=== PATIENT | male | born 1965 | race Caucasian/White ===

== ENCOUNTER 2019-04-21 21:57 | Emergency (ER) | payer BC, OTHER ==
[~2019-04-21] VITALS: Ht 193 cm; Wt 99.5 kg
[~2019-04-21 21:57] MED LIST: HYDR-3972 PO
[2019-04-21 22:29] LABS: BASOPHILS % (AUTO) 0.4 % (0-1); EOSINOPHILS % (AUTO) 0.4 % (0-6); HEMATOCRIT 46.2 % (42.0-52.0); HEMOGLOBIN 15.4 g/dl (14.0-17.9); LYMPHOCYTES # (AUTO) 1.1 X10'3 (1.1-4.8); LYMPHOCYTES % (AUTO) 15.4 % (21-51); MEAN CORPUSCULAR HEMOGLOBIN 30.6 PG (27.0-31.0); MEAN CORPUSCULAR HGB CONC 33.3 g/dL (33.0-36.5); MEAN CORPUSCULAR VOLUME 91.9 FL (78-98); MEAN PLATELET VOLUME 8.1 FL (7.4-10.4); MONOCYTES # (AUTO) 0.4 X10'3 (0-0.9); MONOCYTES % (AUTO) 6.1 % (2-12); NEUTROPHILS # (AUTO) 5.6 X10'3 (1.8-7.7); NEUTROPHILS % (AUTO) 77.7 % (42-75); PLATELET COUNT 244 X10'3 (140-440); RED BLOOD COUNT 5.03 X10'6 (4.70-6.10); RED CELL DISTRIBUTION WIDTH 15.6 % (11.5-14.5); WHITE BLOOD COUNT 7.2 X10'3 (4.5-11.0)
[2019-04-21 22:36] LABS: ALANINE AMINOTRANSFERASE 69 U/L (12-78); ALBUMIN 3.3 G/DL (3.4-5.0); ALKALINE PHOSPHATASE 119 IU/L (46-116); ANION GAP 5 (8-16); ASPARTATE AMINO TRANSFERASE 39 U/L (10-37); BILIRUBIN,TOTAL 0.8 MG/DL (0.1-1.0); BLOOD UREA NITROGEN 28 MG/DL (7-18); BUN/CREATININE RATIO 16.6 (5.4-32.0); CHLORIDE 105 MMOL/L (99-107); CREATININE 1.69 MG/DL (0.60-1.10); GLUCOSE 116 MG/DL (70-104); SODIUM 137 MMOL/L (135-145); TOTAL CARBON DIOXIDE 26.7 MMOL/L (24-32); TOTAL PROTEIN 6.6 G/DL (6.4-8.2); eGFR 42 ML/MIN
[2019-04-21 22:38] LABS: PARTIAL THROMBOPLASTIN TIME 27 SECONDS (22-32)
[2019-04-21 23:38] VITALS: BP 150/89
== END 2019-04-21 23:39 | disposition home or self-care (01) ==
LOC: ER 21:58
DX: I50.9 Heart failure, unspecified (principal); F12.90 Cannabis use, unspecified, uncomplicated; Z98.890 Other specified postprocedural states; Z79.899 Other long term (current) drug therapy
CPT/HCPCS: 36415; 71045; 80053; 83880; 84484; 85025; 85610; 85730; 93005; 99284

== ENCOUNTER 2019-05-19 17:38 | Inpatient (IN) | payer SELFPAY ==
[~2019-05-19] VITALS: Ht 193 cm; Wt 94.7 kg
[2019-05-19 18:12] LABS: BASOPHILS % (AUTO) 0.5 % (0-1); EOSINOPHILS % (AUTO) 0.6 % (0-6); HEMATOCRIT 47.5 % (42.0-52.0); HEMOGLOBIN 15.7 g/dl (14.0-17.9); LYMPHOCYTES % (AUTO) 14.7 % (21-51); MEAN CORPUSCULAR HEMOGLOBIN 30.4 PG (27.0-31.0); MEAN PLATELET VOLUME 7.6 FL (7.4-10.4); MONOCYTES # (AUTO) 0.5 X10'3 (0-0.9); MONOCYTES % (AUTO) 7.1 % (2-12); NEUTROPHILS # (AUTO) 5.5 X10'3 (1.8-7.7); NEUTROPHILS % (AUTO) 77.1 % (42-75); PLATELET COUNT 236 X10'3 (140-440); RED BLOOD COUNT 5.16 X10'6 (4.70-6.10); RED CELL DISTRIBUTION WIDTH 15.5 % (11.5-14.5); WHITE BLOOD COUNT 7.1 X10'3 (4.5-11.0)
[2019-05-19 18:18] LABS: PARTIAL THROMBOPLASTIN TIME 27 SECONDS (22-32)
[2019-05-19 18:20] LABS: ALANINE AMINOTRANSFERASE 63 U/L (12-78); ALBUMIN 3.4 G/DL (3.4-5.0); ALKALINE PHOSPHATASE 124 IU/L (46-116); ANION GAP 7 (8-16); ASPARTATE AMINO TRANSFERASE 34 U/L (10-37); BILIRUBIN,TOTAL 1.1 MG/DL (0.1-1.0); BLOOD UREA NITROGEN 24 MG/DL (7-18); BUN/CREATININE RATIO 18.9 (5.4-32.0); CALCIUM 9.7 MG/DL (8.5-10.1); CHLORIDE 105 MMOL/L (99-107); CREATININE 1.27 MG/DL (0.60-1.10); GLUCOSE 112 MG/DL (70-104); POTASSIUM 4.2 MMOL/L (3.5-5.1); SODIUM 140 MMOL/L (135-145); TOTAL CARBON DIOXIDE 28.1 MMOL/L (24-32); TOTAL PROTEIN 6.7 G/DL (6.4-8.2); eGFR 59 ML/MIN
[2019-05-19] MEDS ORDERED: normal saline 1000ML IV soln IVB ONE (18:30)
[2019-05-19] MEDS ORDERED: morphine 4 MG/ML inj SYRINge IV PRN (18:30)
[2019-05-19] MEDS ORDERED: ondansetron/PF 4mg/2ml inj IV ONE (18:30)
[2019-05-19] MEDS ORDERED: iohexol 350MG/ML 100ml bottle IV ONE (18:39)
[2019-05-19] MEDS ORDERED: furosemide 10 MG/1 ML 10ml inj IV ONE (19:25)
[2019-05-19] MEDS ORDERED: FURO-149 PO (20:34)
[2019-05-19] MEDS ORDERED: LEVO175T2 PO (20:34)
[2019-05-19] MEDS ORDERED: TEST200V10 IM (20:34)
[2019-05-19] MEDS ORDERED: magnesium 2GM in 50ml NS 50 ML IV PRN (20:35)
[2019-05-19] MEDS ORDERED: magnesium hydroxide 30ml (MOM) UD suspension PO PRN (20:35)
[2019-05-19] MEDS ORDERED: ondansetron/PF 4mg/2ml inj IV PRN (20:35)
[2019-05-19] MEDS ORDERED: potassium CL 10mEq/100ml bag 100 ML IV PRN ×2 (20:35)
[2019-05-19] MEDS ORDERED: magnesium 4gm in 100ml NS 100 ML IV PRN (20:35)
[2019-05-19] MEDS ORDERED: acetaminophen 325mg tablet PO PRN ×2 (20:35)
[2019-05-19] MEDS ORDERED: magnesium Cl slow-release 64mg tablet PO PRN (20:35)
[2019-05-19] MEDS ORDERED: potassium Cl 20 mEq SR tablet PO PRN (20:35)
[2019-05-19] MEDS ORDERED: mag hydrox/Alum hydrox/simeth 30ml oral suspension PO PRN (20:35)
--- NOTE | 2019-05-19 21:40 | NUR ---
Pt brought to room 359A via [place],. amb to bed. alert and oriented, gait steady. spouse at bedside. Oriented to room and routine. Received report from GREG. Addendum: 05/19/19 at 2144 by Milagro Salgado RN Amended: Links added.
[2019-05-19 21:46] VITALS: BP 126/87
--- NOTE | 2019-05-19 23:11 | NUR ---
Received call from patient's daughter, Nisha. Patient states okay for family to get information. Requested that primary nurse, Etta, to return call to answer questions. Etta provided Nisha's cell phone number.
[2019-05-19] MEDS: Melatonin 3mg tablet PO SCH (23:13)
[2019-05-19] MEDS ORDERED: pneumococcal 23-VAL P-sac vacc 25 mcg/0.5ml vial IMVAC ONE (23:15)
--- NOTE | 2019-05-19 23:25 | NUR ---
Pt daughter called wanted to chek on pt. Pt states it is okay to give information to daughter Nisha. Addendum: 05/20/19 at 0016 by Milagro Salgado RN Amended: Links added.
[2019-05-20] VITALS (12 sets, daily range): BP systolic 102–119; BP diastolic 69–89
[2019-05-20] MEDS ORDERED: metoprolol tartrate 1mg/ml inj IV PRN (00:15)
[2019-05-20] MEDS ORDERED: aminophylline 250mg/10ml inj. IV PRN (00:15)
[2019-05-20] MEDS ORDERED: nitroGLYCERIN 0.4mg SUBLingual tab SL PRN ×2 (00:15)
[2019-05-20] MEDS ORDERED: regadenoson 0.4mg/5ml syringe IV ONE (00:15)
--- NOTE | 2019-05-20 06:30 | NUR ---
Patient in room [facility]. I have received report from GREG Quiles and had the opportunity to ask questions and assume patient care.
--- NOTE | 2019-05-20 06:30 | NUR ---
Problems reprioritized. Patient report given, questions answered & plan of care reviewed with GREG Wright. Addendum: 05/20/19 at 0647 by Milagro Salgado RN Amended: Links added.
[2019-05-20 06:42] LABS: BASOPHILS % (AUTO) 0.6 % (0-1); EOSINOPHILS # (AUTO) 0.1 X10'3 (0-0.9); EOSINOPHILS % (AUTO) 0.8 % (0-6); HEMATOCRIT 44.1 % (42.0-52.0); HEMOGLOBIN 14.7 g/dl (14.0-17.9); LYMPHOCYTES % (AUTO) 15.5 % (21-51); MEAN CORPUSCULAR HEMOGLOBIN 30.8 PG (27.0-31.0); MEAN CORPUSCULAR HGB CONC 33.3 g/dL (33.0-36.5); MEAN CORPUSCULAR VOLUME 92.5 FL (78-98); MEAN PLATELET VOLUME 8.2 FL (7.4-10.4); MONOCYTES # (AUTO) 0.4 X10'3 (0-0.9); MONOCYTES % (AUTO) 6.3 % (2-12); NEUTROPHILS % (AUTO) 76.8 % (42-75); PLATELET COUNT 200 X10'3 (140-440); RED BLOOD COUNT 4.77 X10'6 (4.70-6.10); RED CELL DISTRIBUTION WIDTH 15.4 % (11.5-14.5); WHITE BLOOD COUNT 6.5 X10'3 (4.5-11.0)
[2019-05-20 06:57] LABS: ANION GAP 8 (8-16); BLOOD UREA NITROGEN 25 MG/DL (7-18); CALCIUM 8.4 MG/DL (8.5-10.1); CHLORIDE 107 MMOL/L (99-107); CREATININE 1.19 MG/DL (0.60-1.10); GLUCOSE 100 MG/DL (70-104); POTASSIUM 4.2 MMOL/L (3.5-5.1); SODIUM 140 MMOL/L (135-145); TOTAL CARBON DIOXIDE 25.3 MMOL/L (24-32); eGFR 64 ML/MIN
[2019-05-20] MEDS: enoxaparin 40mg/0.4ml syringe SQ SCH (08:00)
[2019-05-20] MEDS: K and/or MAG REPLACEMENT MC SCH (08:00)
[2019-05-20] MEDS: levoTHYROXINE 175mcg tablet PO SCH (08:45)
[2019-05-20] MEDS: aspirin 81mg tablet.DR PO SCH (08:45)
[2019-05-20] MEDS ORDERED: pneumococcal 23-VAL P-sac vacc 25 mcg/0.5ml vial IMVAC ONE (09:00)
[2019-05-20 11:34] LABS: CHOL/HDL RATIO 3.7 (0.00-4.99); CHOLESTEROL 150 MG/DL (0-200); HDL CHOLESTEROL 41 MG/DL (35-60); LDL CHOLESTEROL 97 MG/DL (50-100); TRIGLYCERIDES 69 MG/DL (20-135)
[2019-05-20] MEDS: furosemide 40mg/4ml inj IV SCH ×2 (11:47→20:32)
[2019-05-20] MEDS ORDERED: magnesium 4gm in 100ml NS 100 ML IV PRN (15:20)
[2019-05-20] MEDS ORDERED: potassium Cl 20 mEq SR tablet PO PRN ×2 (15:20)
[2019-05-20] MEDS ORDERED: potassium CL 10mEq/100ml bag 100 ML IV PRN (15:20)
[2019-05-20] MEDS ORDERED: magnesium Cl slow-release 64mg tablet PO PRN (15:20)
[2019-05-20] MEDS ORDERED: magnesium 2GM in 50ml NS 50 ML IV PRN (15:20)
--- NOTE | 2019-05-20 18:40 | NUR ---
Patient in room [facility]. I have received report from GREG Wright and had the opportunity to ask questions and assume patient care. Addendum: 05/20/19 at 1902 by Milagro Salgado RN Amended: Links added.
--- NOTE | 2019-05-20 18:40 | NUR ---
Problems reprioritized. Patient report given, questions answered & plan of care reviewed with GREG Quiles.
[2019-05-20] MEDS: carVEDilol 3.125mg tablet PO SCH (20:32)
[2019-05-20] MEDS: Melatonin 3mg tablet PO SCH (23:32)
[2019-05-21 00:38] VITALS: BP 120/83
[2019-05-21 04:15] LABS: BASOPHILS % (AUTO) 0.4 % (0-1); EOSINOPHILS # (AUTO) 0.1 X10'3 (0-0.9); EOSINOPHILS % (AUTO) 0.7 % (0-6); HEMATOCRIT 45.3 % (42.0-52.0); HEMOGLOBIN 15.2 g/dl (14.0-17.9); LYMPHOCYTES % (AUTO) 13.4 % (21-51); MEAN CORPUSCULAR HEMOGLOBIN 30.9 PG (27.0-31.0); MEAN CORPUSCULAR HGB CONC 33.6 g/dL (33.0-36.5); MEAN CORPUSCULAR VOLUME 92.1 FL (78-98); MEAN PLATELET VOLUME 7.9 FL (7.4-10.4); MONOCYTES # (AUTO) 0.5 X10'3 (0-0.9); MONOCYTES % (AUTO) 6.8 % (2-12); NEUTROPHILS # (AUTO) 5.9 X10'3 (1.8-7.7); NEUTROPHILS % (AUTO) 78.7 % (42-75); PLATELET COUNT 224 X10'3 (140-440); RED BLOOD COUNT 4.92 X10'6 (4.70-6.10); RED CELL DISTRIBUTION WIDTH 15.2 % (11.5-14.5); WHITE BLOOD COUNT 7.5 X10'3 (4.5-11.0)
[2019-05-21 04:33] LABS: ALBUMIN 2.9 G/DL (3.4-5.0); ANION GAP 8 (8-16); BLOOD UREA NITROGEN 25 MG/DL (7-18); BUN/CREATININE RATIO 18.2 (5.4-32.0); CALCIUM 8.6 MG/DL (8.5-10.1); CHLORIDE 104 MMOL/L (99-107); CREATININE 1.37 MG/DL (0.60-1.10); GLUCOSE 102 MG/DL (70-104); MAGNESIUM 1.8 MG/DL (1.5-2.4); PHOSPHORUS 4.3 MG/DL (2.3-4.5); SODIUM 140 MMOL/L (135-145); TOTAL CARBON DIOXIDE 27.8 MMOL/L (24-32); eGFR 54 ML/MIN
--- NOTE | 2019-05-21 06:35 | NUR ---
Problems reprioritized. Patient report given, questions answered & plan of care reviewed with GREG ROMANO. Addendum: 05/21/19 at 0635 by Milagro Salgado RN Amended: Links added.
[2019-05-21 07:00] VITALS: BP 140/63
[2019-05-21 07:22] LABS: URINE AMPHETAMINE SCREEN NEGATIVE (Neg); URINE BARBITUATE SCREEN NEGATIVE (Neg); URINE BENZODIAZEPINES SCREEN NEGATIVE (Neg); URINE CANNABINOID SCREEN POSITIVE (Neg); URINE COCAINE SCREEN NEGATIVE (Neg); URINE METHADONE SCREEN NEGATIVE (Neg); URINE OPIATE SCREEN NEGATIVE (Neg); URINE PHENCYCLIDINE SCREEN NEGATIVE (Neg)
[2019-05-21] MEDS: aspirin 81mg tablet.DR PO SCH (08:00)
[2019-05-21] MEDS: K and/or MAG REPLACEMENT MC SCH (08:00)
[2019-05-21] MEDS: enoxaparin 40mg/0.4ml syringe SQ SCH (08:00)
[2019-05-21] MEDS: levoTHYROXINE 175mcg tablet PO SCH (08:04)
[2019-05-21] MEDS: furosemide 40mg/4ml inj IV SCH ×2 (08:04→20:51)
[2019-05-21] MEDS: carVEDilol 3.125mg tablet PO SCH ×2 (08:04→20:48)
[2019-05-21] MEDS: spironolactone 25 MG tablet PO SCH (08:04)
[2019-05-21 11:54] VITALS: BP 132/60
--- NOTE | 2019-05-21 11:58 | NUR ---
CALLED TO FINE PATCHER AND SPOKE TO GREG BADILLO. LET HIM KNOW THAT THERE WAS A MISC. ORDER PER DR LEBRON TO HAVE PATIENT'S K ABOVE 4.0 AND MG 2.0. PATIENT'S K IS 4.0 AND MG IS 1.8. JUSTINO PLACED THIS RN ON HOLD AND CAME BACK TO PHONE STATING THAT ," YEAH, THAT'S OKAY. JUST HAVE PATIENT PREPPED AND CONSENT SIGNED."
[2019-05-21 12:00] VITALS: BP 132/60
[2019-05-21] MEDS: losartan 25mg tablet PO SCH (12:00)
--- NOTE | 2019-05-21 12:18 | NUR ---
SPOKE TO DR LEBRON AND HE WOULD LIKE FOR PATIENT TO HAVE MG REPLACEMENT 2MG IV X1 NOW AND OK TO HOLD LOSARTAN.
[2019-05-21] MEDS ORDERED: verapamil 2.5 mg/ml inj IV ONE (13:54)
[2019-05-21] MEDS ORDERED: heparin 1,000unit/ml 10ml vial 10 ML ONE (13:54)
[2019-05-21] MEDS ORDERED: heparin 1,000 UNITS/NS 500ml 500 ML ONE ×2 (13:55)
[2019-05-21] MEDS ORDERED: iohexol 350MG/ML 100ml bottle IV ONE (13:55)
[2019-05-21] MEDS ORDERED: iohexol 350 MG/ML 50ML vial IV ONE (13:55)
[2019-05-21] MEDS ORDERED: nitroGLYCERIN-Tridil 50MG/D5W 250 ML IV ONE (13:55)
[2019-05-21] MEDS ORDERED: LIDOcaine 1% (10mg/ml)w/preservative injection 20ml MDV ONE (13:59)
--- NOTE | 2019-05-21 14:00 | NUR ---
PATIENT DOWN TO NEGATIVE RETOUCHER.
[2019-05-21] MEDS ORDERED: fentaNYL/PF 50MCG/1 ML 2ML syringe ONE (14:09)
[2019-05-21] MEDS ORDERED: midazolam 2 mg/2 ml injection ONE (14:09)
[2019-05-21 15:11] LABS: ISTAT Hct MIX 49 %PCV (42-52); ISTAT O2 SATURATION MIX VENOUS 58 % (60-80); ISTAT SOURCE MIX
[2019-05-21 15:11] LABS: ISTAT HGB ART 16.7 g/dl (14.0-18.0); ISTAT Hct ART 49 %PCV (42-52); ISTAT O2 SATURATION ARTERIAL 92 % (95-98); ISTAT SOURCE ART
[2019-05-21] MEDS ORDERED: normal saline 1000ml 1,000 ML IV ONE (15:20)
--- NOTE | 2019-05-21 15:51 | NUR ---
PATIENT RETURNED TO ROOM 359A WITH SPOUSE AT BEDSIDE. HEMOSTATIC WRIST BAND WITH NO S/S OF BLEEDING. 3ML OF AIR RELEASED WITH NO ISSUES. WILL CONTINUE TO RELEASE ML OF AIR FROM HEMOSTATIC WRIST BAND ORDERED. WILL CONTINUE TO MONITOR.
--- NOTE | 2019-05-21 16:11 | NUR ---
Went in to patient's room to release another 3ML of air from hemostatic wrist when patient's spouse stated,"it's already done. I did it." Patient spouse states she is a GRAVEL WHEELER and a discharge planner. Educated patient's spouse that is she is not to release air from hemostatic wrist band. Patient's spouse verbalized understanding.
--- NOTE | 2019-05-21 16:51 | NUR ---
All air from hemostatic wrist band to right wrist removed. Cleansed site with alcohol swab and placed band aid on as ordered. Good cap refill, no complaints of wrist pain, no bleeding. Will continue to monitor.
--- NOTE | 2019-05-21 18:20 | NUR ---
Problems reprioritized. Patient report given, questions answered & plan of care reviewed with Michelle Castro.
--- NOTE | 2019-05-21 18:30 | NUR ---
Patient in room [facility]. I have received report from ROSALINA GARZA and had the opportunity to ask questions and assume patient care.
[2019-05-21 20:00] VITALS: BP 118/93
[2019-05-21] MEDS: magnesium oxide 400mg tablet PO SCH (20:48)
[2019-05-21] MEDS: Melatonin 3mg tablet PO SCH (22:04)
[2019-05-22] VITALS: BP 116/89
--- NOTE | 2019-05-22 06:36 | NUR ---
Problems reprioritized. Patient report given, questions answered & plan of care reviewed with KAIT GARZA.
[2019-05-22 06:42] LABS: BASOPHILS % (AUTO) 0.7 % (0-1); EOSINOPHILS # (AUTO) 0.1 X10'3 (0-0.9); EOSINOPHILS % (AUTO) 0.7 % (0-6); HEMATOCRIT 43.1 % (42.0-52.0); HEMOGLOBIN 14.2 g/dl (14.0-17.9); LYMPHOCYTES % (AUTO) 14.1 % (21-51); MEAN CORPUSCULAR HEMOGLOBIN 30.5 PG (27.0-31.0); MEAN CORPUSCULAR HGB CONC 32.9 g/dL (33.0-36.5); MEAN CORPUSCULAR VOLUME 92.7 FL (78-98); MEAN PLATELET VOLUME 8.2 FL (7.4-10.4); MONOCYTES # (AUTO) 0.5 X10'3 (0-0.9); MONOCYTES % (AUTO) 7.5 % (2-12); NEUTROPHILS # (AUTO) 5.3 X10'3 (1.8-7.7); PLATELET COUNT 211 X10'3 (140-440); RED BLOOD COUNT 4.65 X10'6 (4.70-6.10); RED CELL DISTRIBUTION WIDTH 15.3 % (11.5-14.5); WHITE BLOOD COUNT 6.9 X10'3 (4.5-11.0)
[2019-05-22 07:00] VITALS: BP 96/64
[2019-05-22 07:03] LABS: ALBUMIN 2.4 G/DL (3.4-5.0); ANION GAP 9 (8-16); BLOOD UREA NITROGEN 22 MG/DL (7-18); BUN/CREATININE RATIO 19.1 (5.4-32.0); CALCIUM 7.3 MG/DL (8.5-10.1); CHLORIDE 109 MMOL/L (99-107); CREATININE 1.15 MG/DL (0.60-1.10); GLUCOSE 91 MG/DL (70-104); MAGNESIUM 1.7 MG/DL (1.5-2.4); POTASSIUM 3.6 MMOL/L (3.5-5.1); SODIUM 143 MMOL/L (135-145); eGFR 66 ML/MIN
[2019-05-22] MEDS: K and/or MAG REPLACEMENT MC SCH (08:00)
[2019-05-22] MEDS: losartan 25mg tablet PO SCH (08:00)
[2019-05-22] MEDS: carVEDilol 3.125mg tablet PO SCH (08:00)
[2019-05-22] MEDS: Cipro HC otic suspension 10ML bottle EACH EAR SCH ×2 (09:26→20:03)
[2019-05-22] MEDS: levoTHYROXINE 175mcg tablet PO SCH (09:30)
[2019-05-22] MEDS: magnesium oxide 400mg tablet PO SCH ×2 (09:30→20:01)
[2019-05-22] MEDS: aspirin 81mg tablet.DR PO SCH (09:30)
[2019-05-22] MEDS: furosemide 40mg/4ml inj IV SCH ×2 (09:32→20:04)
[2019-05-22] MEDS: spironolactone 25 MG tablet PO SCH (09:33)
[2019-05-22] MEDS: enoxaparin 40mg/0.4ml syringe SQ SCH (09:33)
[2019-05-22 11:00] VITALS: BP 107/85
--- NOTE | 2019-05-22 12:15 | NUR ---
Dr. Sandoval rounded and orders received as entered in chart. Bridgett LESLIE, stated LifeVest is pending authorization, and will be delivered enzo once approved.
[2019-05-22] MEDS: potassium Cl 20 mEq SR tablet PO PRN ×2 (12:58→19:59)
[2019-05-22 18:00] VITALS: BP 114/85
--- NOTE | 2019-05-22 18:22 | NUR ---
Patient in room [facility]. I have received report from GREG Mckeon and had the opportunity to ask questions and assume patient care.
[2019-05-22] MEDS: carvedilol 6.25mg tablet PO SCH (20:01)
[2019-05-22] MEDS: Melatonin 3mg tablet PO SCH (22:14)
[2019-05-23] VITALS: BP 98/69
[2019-05-23 06:09] LABS: BASOPHILS % (AUTO) 0.6 % (0-1); EOSINOPHILS # (AUTO) 0.1 X10'3 (0-0.9); EOSINOPHILS % (AUTO) 1.2 % (0-6); HEMATOCRIT 46.6 % (42.0-52.0); HEMOGLOBIN 15.5 g/dl (14.0-17.9); LYMPHOCYTES # (AUTO) 1.4 X10'3 (1.1-4.8); LYMPHOCYTES % (AUTO) 20.3 % (21-51); MEAN CORPUSCULAR HEMOGLOBIN 30.6 PG (27.0-31.0); MEAN CORPUSCULAR HGB CONC 33.3 g/dL (33.0-36.5); MEAN CORPUSCULAR VOLUME 91.9 FL (78-98); MEAN PLATELET VOLUME 7.7 FL (7.4-10.4); MONOCYTES # (AUTO) 0.6 X10'3 (0-0.9); MONOCYTES % (AUTO) 8.1 % (2-12); NEUTROPHILS # (AUTO) 4.7 X10'3 (1.8-7.7); NEUTROPHILS % (AUTO) 69.8 % (42-75); PLATELET COUNT 247 X10'3 (140-440); RED BLOOD COUNT 5.07 X10'6 (4.70-6.10); RED CELL DISTRIBUTION WIDTH 15.3 % (11.5-14.5); WHITE BLOOD COUNT 6.8 X10'3 (4.5-11.0)
--- NOTE | 2019-05-23 06:15 | NUR ---
Problems reprioritized. Patient report given, questions answered & plan of care reviewed with GREG Mckeon.
[2019-05-23 06:18] LABS: ALBUMIN 2.9 G/DL (3.4-5.0); ANION GAP 4 (8-16); BLOOD UREA NITROGEN 29 MG/DL (7-18); BUN/CREATININE RATIO 20.7 (5.4-32.0); CALCIUM 9.1 MG/DL (8.5-10.1); CHLORIDE 104 MMOL/L (99-107); GLUCOSE 95 MG/DL (70-104); MAGNESIUM 2.1 MG/DL (1.5-2.4); PHOSPHORUS 4.5 MG/DL (2.3-4.5); POTASSIUM 4.4 MMOL/L (3.5-5.1); SODIUM 139 MMOL/L (135-145); TOTAL CARBON DIOXIDE 30.8 MMOL/L (24-32); eGFR 53 ML/MIN
[2019-05-23 08:00] VITALS: BP 96/64
[2019-05-23] MEDS: K and/or MAG REPLACEMENT MC SCH (08:00)
[2019-05-23] MEDS: losartan 25mg tablet PO SCH (08:00)
[2019-05-23] MEDS: furosemide 40mg/4ml inj IV SCH (09:19)
[2019-05-23] MEDS: magnesium oxide 400mg tablet PO SCH ×2 (09:19→20:00)
[2019-05-23] MEDS: aspirin 81mg tablet.DR PO SCH (09:19)
[2019-05-23] MEDS: spironolactone 25 MG tablet PO SCH (09:19)
[2019-05-23] MEDS: levoTHYROXINE 175mcg tablet PO SCH (09:19)
[2019-05-23] MEDS: carvedilol 6.25mg tablet PO SCH (09:25)
[2019-05-23] MEDS: enoxaparin 40mg/0.4ml syringe SQ SCH (09:26)
[2019-05-23] MEDS: Cipro HC otic suspension 10ML bottle EACH EAR SCH ×2 (09:27→20:01)
[2019-05-23 12:00] VITALS: BP 114/78
--- NOTE | 2019-05-23 12:31 | NUR ---
Patient complaining of chest pain, EKG done. Dr. Diggs paged. Awaiting callback. VS HR 96, 96% on RA, 93/65, resp 20. Pt states he feels SOB. Pt stating pain is mostly on back towards left shoulder.
--- NOTE | 2019-05-23 12:53 | NUR ---
Dr. Diggs in to see patient, MD aware of EKG results and BP 93/65. MD stated she will adjust BP medications and to place pt on 2L O2.
[2019-05-23 20:00] VITALS: BP 99/72
[2019-05-23] MEDS: carVEDilol 3.125mg tablet PO SCH (20:01)
[2019-05-23] MEDS: Melatonin 3mg tablet PO SCH (20:01)
--- NOTE | 2019-05-23 21:35 | NUR ---
Patient in room [facility]. I have received report from GREG Mckeon and had the opportunity to ask questions and assume patient care. Addendum: 05/23/19 at 2136 by Ana Bach RN Amended: Links added.
[2019-05-24] VITALS: BP 103/62
[2019-05-24 04:46] LABS: BASOPHILS % (AUTO) 0.6 % (0-1); EOSINOPHILS # (AUTO) 0.1 X10'3 (0-0.9); EOSINOPHILS % (AUTO) 1.2 % (0-6); HEMATOCRIT 47.9 % (42.0-52.0); HEMOGLOBIN 15.8 g/dl (14.0-17.9); LYMPHOCYTES # (AUTO) 1.1 X10'3 (1.1-4.8); LYMPHOCYTES % (AUTO) 18.7 % (21-51); MEAN CORPUSCULAR HEMOGLOBIN 30.6 PG (27.0-31.0); MEAN CORPUSCULAR HGB CONC 32.9 g/dL (33.0-36.5); MEAN CORPUSCULAR VOLUME 92.9 FL (78-98); MEAN PLATELET VOLUME 7.9 FL (7.4-10.4); MONOCYTES # (AUTO) 0.5 X10'3 (0-0.9); MONOCYTES % (AUTO) 7.7 % (2-12); NEUTROPHILS # (AUTO) 4.3 X10'3 (1.8-7.7); NEUTROPHILS % (AUTO) 71.8 % (42-75); PLATELET COUNT 257 X10'3 (140-440); RED BLOOD COUNT 5.16 X10'6 (4.70-6.10); RED CELL DISTRIBUTION WIDTH 15.3 % (11.5-14.5)
[2019-05-24 04:57] LABS: ALBUMIN 3.1 G/DL (3.4-5.0); ANION GAP 6 (8-16); BLOOD UREA NITROGEN 28 MG/DL (7-18); BUN/CREATININE RATIO 19.6 (5.4-32.0); CHLORIDE 104 MMOL/L (99-107); CREATININE 1.43 MG/DL (0.60-1.10); GLUCOSE 91 MG/DL (70-104); MAGNESIUM 2.1 MG/DL (1.5-2.4); PHOSPHORUS 4.6 MG/DL (2.3-4.5); POTASSIUM 5.1 MMOL/L (3.5-5.1); SODIUM 141 MMOL/L (135-145); TOTAL CARBON DIOXIDE 31.4 MMOL/L (24-32); eGFR 52 ML/MIN
--- NOTE | 2019-05-24 06:13 | NUR ---
Problems reprioritized. Patient report given, questions answered & plan of care reviewed with GREG Mckeon. Addendum: 05/24/19 at 0613 by Ana Bach RN Amended: Links added.
[2019-05-24 07:00] VITALS: BP 96/60
[2019-05-24] MEDS: furosemide 40mg tablet PO SCH (07:59)
[2019-05-24] MEDS: Cipro HC otic suspension 10ML bottle EACH EAR SCH ×2 (07:59→20:15)
[2019-05-24] MEDS: spironolactone 25 MG tablet PO SCH ×2 (07:59→08:02)
[2019-05-24] MEDS: aspirin 81mg tablet.DR PO SCH (07:59)
[2019-05-24] MEDS: levoTHYROXINE 175mcg tablet PO SCH (07:59)
[2019-05-24] MEDS: magnesium oxide 400mg tablet PO SCH ×2 (07:59→20:15)
[2019-05-24] MEDS: carVEDilol 3.125mg tablet PO SCH ×2 (07:59→20:23)
[2019-05-24] MEDS: K and/or MAG REPLACEMENT MC SCH (08:00)
[2019-05-24] MEDS: enoxaparin 40mg/0.4ml syringe SQ SCH (08:00)
[2019-05-24] MEDS ORDERED: furosemide 40mg/4ml inj IV SCH (08:00)
[2019-05-24] MEDS: losartan 25mg tablet PO SCH (08:00)
[2019-05-24 11:00] VITALS: BP 92/58
--- NOTE | 2019-05-24 13:32 | NUR ---
Great appetite, 100% PO, meeting needs. Recommend: 1. continue sodium restricted diet 2. wt per rx Addendum: 05/24/19 at [address] Amended: Links added.
--- NOTE | 2019-05-24 18:30 | NUR ---
Patient in room [facility]. I have received report from GREG Mckeon and had the opportunity to ask questions and assume patient care. Addendum: 05/24/19 at 1830 by Ana Bach RN Amended: Links added.
[2019-05-24 20:00] VITALS: BP 99/68
[2019-05-24] MEDS: Melatonin 3mg tablet PO SCH (20:16)
--- NOTE | 2019-05-24 20:20 | NUR ---
pt. requested to have coreg even though his bp was 99/68. He states that Jaime Mccullough stated that he should take the coreg if sbp is greater than 95. Will monitor pt. closely.
[2019-05-25 00:03] VITALS: BP 100/64
--- NOTE | 2019-05-25 06:16 | NUR ---
Problems reprioritized. Patient report given, questions answered & plan of care reviewed with GREG Russell. Addendum: 05/25/19 at 0616 by Ana Bach RN Amended: Links added.
--- NOTE | 2019-05-25 06:20 | NUR ---
Patient in room [facility]. I have received report from GREG Perez and had the opportunity to ask questions and assume patient care.
[2019-05-25 07:00] VITALS: BP 94/66
[2019-05-25 07:00] LABS: MAGNESIUM 2.2 MG/DL (1.5-2.4); PHOSPHORUS 4.5 MG/DL (2.3-4.5)
[2019-05-25] MEDS: enoxaparin 40mg/0.4ml syringe SQ SCH (08:00)
[2019-05-25] MEDS: K and/or MAG REPLACEMENT MC SCH (08:00)
[2019-05-25] MEDS: losartan 25mg tablet PO SCH (08:00)
[2019-05-25] MEDS: spironolactone 25 MG tablet PO SCH (08:30)
[2019-05-25 08:37] LABS: ANION GAP 7 (8-16); BLOOD UREA NITROGEN 23 MG/DL (7-18); BUN/CREATININE RATIO 18.4 (5.4-32.0); CALCIUM 8.9 MG/DL (8.5-10.1); CHLORIDE 106 MMOL/L (99-107); CREATININE 1.25 MG/DL (0.60-1.10); GLUCOSE 149 MG/DL (70-104); POTASSIUM 4.4 MMOL/L (3.5-5.1); SODIUM 139 MMOL/L (135-145); TOTAL CARBON DIOXIDE 25.9 MMOL/L (24-32); eGFR 60 ML/MIN
[2019-05-25 09:00] VITALS: BP 103/64
--- NOTE | 2019-05-25 09:00 | NUR ---
Notified Dr. Smith that this patient has been running low blood pressure 96/66 this am-ordered to hold Losartan. Pt also did not meet parameters for/held spironolactone. aware.
[2019-05-25] MEDS: levoTHYROXINE 175mcg tablet PO SCH (09:35)
[2019-05-25] MEDS: carVEDilol 3.125mg tablet PO SCH ×2 (09:35→21:30)
[2019-05-25] MEDS: magnesium oxide 400mg tablet PO SCH ×2 (09:35→21:31)
[2019-05-25] MEDS: aspirin 81mg tablet.DR PO SCH (09:35)
[2019-05-25] MEDS: furosemide 40mg tablet PO SCH (09:44)
[2019-05-25] MEDS: Cipro HC otic suspension 10ML bottle EACH EAR SCH ×2 (09:48→21:31)
[2019-05-25 11:00] VITALS: BP 93/70
[2019-05-25 20:00] VITALS: BP 104/71
[2019-05-25] MEDS: Melatonin 3mg tablet PO SCH (21:31)
--- NOTE | 2019-05-25 23:07 | NUR ---
Patient in room [facility]. I have received report from GREG Russell and had the opportunity to ask questions and assume patient care. Addendum: 05/25/19 at 2307 by Ana Bach RN Amended: Links added.
[2019-05-26] VITALS: BP 106/77
[2019-05-26] MEDS ORDERED: TESTOSTERONE CYPIONATE 200 MG/ML VIAL IM SCH (00:10)
[2019-05-26 06:10] LABS: ALBUMIN 3.1 G/DL (3.4-5.0); ANION GAP 6 (8-16); BLOOD UREA NITROGEN 21 MG/DL (7-18); BUN/CREATININE RATIO 16.5 (5.4-32.0); CALCIUM 8.6 MG/DL (8.5-10.1); CHLORIDE 107 MMOL/L (99-107); CREATININE 1.27 MG/DL (0.60-1.10); GLUCOSE 92 MG/DL (70-104); MAGNESIUM 2.2 MG/DL (1.5-2.4); POTASSIUM 4.5 MMOL/L (3.5-5.1); SODIUM 141 MMOL/L (135-145); TOTAL CARBON DIOXIDE 28.1 MMOL/L (24-32); eGFR 59 ML/MIN
--- NOTE | 2019-05-26 06:23 | NUR ---
Problems reprioritized. Patient report given, questions answered & plan of care reviewed with GREG Russell. Addendum: 05/26/19 at 0623 by Ana Bach RN Amended: Links added.
--- NOTE | 2019-05-26 06:32 | NUR ---
Patient in room [facility]. I have received report from GREG Perez and had the opportunity to ask questions and assume patient care.
[2019-05-26 07:04] VITALS: BP 110/78
[2019-05-26] MEDS: enoxaparin 40mg/0.4ml syringe SQ SCH (08:00)
[2019-05-26] MEDS: K and/or MAG REPLACEMENT MC SCH (08:00)
[2019-05-26] MEDS: levoTHYROXINE 175mcg tablet PO SCH (09:21)
[2019-05-26] MEDS: magnesium oxide 400mg tablet PO SCH ×2 (09:21→20:46)
[2019-05-26] MEDS: furosemide 40mg tablet PO SCH (09:21)
[2019-05-26] MEDS: Cipro HC otic suspension 10ML bottle EACH EAR SCH ×2 (09:21→20:49)
[2019-05-26] MEDS: aspirin 81mg tablet.DR PO SCH (09:21)
[2019-05-26] MEDS: spironolactone 25 MG tablet PO SCH (09:32)
[2019-05-26] MEDS: losartan 25mg tablet PO SCH (09:33)
[2019-05-26 11:00] VITALS: BP 112/79
--- NOTE | 2019-05-26 15:00 | NUR ---
Found pt to be wearing surgical scrubs and sterile foot covers in his room-explained to patient that he could not leave the unit, that he was being monitored with backup engineer and that it was not safe to leave surgical. Patient states he agrees not to leave and would "follow wishes."
--- NOTE | 2019-05-26 15:50 | NUR ---
[facility] [facility], Sabiha, reported pt was in the OR "working", and she notified administration. Alona Fitzgerald, Director, and I spoke w/ pt at bedside to request he stay on the unit at all times, or notify his RN if he plans to leave the unit, d/t his diagnosis and pending "LifeVest" delivery from [facility] before discharging home. Pt verbalized understanding and agreed to nursing request.
--- NOTE | 2019-05-26 18:55 | NUR ---
Problems reprioritized. Patient report given, questions answered & plan of care reviewed with Starla RN.
[2019-05-26 19:30] VITALS: BP 107/72
[2019-05-26] MEDS: carVEDilol 3.125mg tablet PO SCH (20:48)
[2019-05-26] MEDS: Melatonin 3mg tablet PO SCH (21:04)
[2019-05-27] VITALS: BP 92/57
[2019-05-27 07:30] VITALS: BP 104/72
--- NOTE | 2019-05-27 07:53 | NUR ---
Pt has left room without telling nursing. Dr Sood was looking for patient because there is some sort of procedure patient is supposed to assist on, Mr Butler works for Dr Sood. Dr Sood is aware he is a patient. I called to OR and charge nurse says he is down there. Tele called and pt's HR is 115ish.
[2019-05-27] MEDS: K and/or MAG REPLACEMENT MC SCH (08:00)
[2019-05-27] MEDS: enoxaparin 40mg/0.4ml syringe SQ SCH (08:00)
--- NOTE | 2019-05-27 08:06 | NUR ---
Pt has arrived back to the floor. Cassy GARZA charge nurse and I have talked to him. He tried to say he was in the cafeteria eating, we told him we know he was in the OR and he was already told not to leave floor and that he needed to communicate with nursing as situations like this arise. Pt says he will not do it again. Will monitor.
[2019-05-27 08:15] VITALS: BP 101/75
[2019-05-27] MEDS: aspirin 81mg tablet.DR PO SCH (08:23)
[2019-05-27] MEDS: carVEDilol 3.125mg tablet PO SCH (08:23)
[2019-05-27] MEDS: magnesium oxide 400mg tablet PO SCH (08:23)
[2019-05-27] MEDS: furosemide 40mg tablet PO SCH (08:23)
[2019-05-27] MEDS: levoTHYROXINE 175mcg tablet PO SCH (08:24)
[2019-05-27] MEDS: Cipro HC otic suspension 10ML bottle EACH EAR SCH (08:29)
--- NOTE | 2019-05-27 08:33 | NUR ---
Ana Rosa Zayas rounded on pt while he was off the floor. Discussed w/ her the patient's activity this morning. Ana Rosa stated she would not be rounding again on pt today unless needed, but called from PCU stating telemetry shows pt's HR in the 110-119's. I phoned the OR and spoke w/ primer charger, Shelia, who agreed to notify Mr Butler who was in the OR w/ Dr Sood of the HR. Nsg Apparel Machinery Instructor and Infection container finisher notified of above. Pt returned to room at 0810. GREG Don and myself discussed at length the need for the pt to remain on the unit as instructed, and agreed to by the pt yesterday, as well as concerns that the pt is hospitalized at this time for CO of max 10-15%. Yesterday he had declined being discharged home stating if he went home to wait for the lifevest he wouldn't have a defibrillator at home. He stated the reason he could not decline Dr. Hale request to go to the OR was due to the patient's cases are emergent. I reminded him that if he has an emergent need while assisting then he is compromising the OR team's care of the patient on the OR table. He again agreed to stay on the unit and not leave w/o notifying the RN, Charge Nurse, or US.
[2019-05-27 10:00] VITALS: BP 92/63
[2019-05-27] MEDS: losartan 25mg tablet PO SCH (10:00)
[2019-05-27 11:00] VITALS: BP 99/68
--- NOTE | 2019-05-27 11:19 | NUR ---
Reviewed Lia GARZA's AM assessment, I agree with her assessment.
[2019-05-27] MEDS: spironolactone 25 MG tablet PO SCH (11:20)
[2019-05-27] MEDS ORDERED: LOSA25TA41 PO (16:13)
[2019-05-27] MEDS ORDERED: CIPR10DR EACH EAR (16:13)
[2019-05-27] MEDS ORDERED: SPIR25TA PO (16:13)
[2019-05-27] MEDS ORDERED: FURO40TA4 PO (16:13)
[2019-05-27] MEDS ORDERED: ASPI-1071 PO (16:13)
[2019-05-27] MEDS ORDERED: COR3.125T PO (16:13)
--- NOTE | 2019-05-27 17:54 | NUR ---
PT FITTED WITH LIFE VEST, EDUCATED ABOUT NEW MEDS, DISEASE PROCESS, PT WILL SCHEDULE FOLLOW UP APPOINTMENT, ALL BELONGS SENT HOME WITH PT, TAKEN BY WHEEL CHAIR TO LOBBY WHERE THEIR RIDE WAS WAITING TI
--- NOTE | 2019-05-27 17:56 | NUR ---
CONTINUED: TO TAKE HOME, PT WILL [facility] AT [facility], IV TAKEN OUT, TELE TAKEN OFF, PT APPROPRIATE FOR DISCHARGE
== END 2019-05-27 17:31 | disposition home or self-care (01) | DRG 286 ==
LOC: ER 17:39 → EEVIPCON 21:34 → SUR 3N 21:34 → CMPBEDREQ 21:51
PROVIDERS: ADMIT Hospitalist; ATTEND Hospitalist
PROC: B32T1ZZ Computerized Tomography (CT Scan) of Left Pulmonary Artery using Low Osmolar Contrast (ICD-10-PCS; 2019-05-19)
PROC: B3201ZZ Computerized Tomography (CT Scan) of Thoracic Aorta using Low Osmolar Contrast (ICD-10-PCS; 2019-05-19)
PROC: B32S1ZZ Computerized Tomography (CT Scan) of Right Pulmonary Artery using Low Osmolar Contrast (ICD-10-PCS; 2019-05-19)
PROC: 4A02XM4 Measurement of Cardiac Total Activity, External Approach (ICD-10-PCS; 2019-05-20)
PROC: 3E033HZ Introduction of Radioactive Substance into Peripheral Vein, Percutaneous Approach (ICD-10-PCS; 2019-05-20)
PROC: 4A023N8 Measurement of Cardiac Sampling and Pressure, Bilateral, Percutaneous Approach (ICD-10-PCS; principal; 2019-05-21)
PROC: B2111ZZ Fluoroscopy of Multiple Coronary Arteries using Low Osmolar Contrast (ICD-10-PCS; 2019-05-21)
PROC: B2151ZZ Fluoroscopy of Left Heart using Low Osmolar Contrast (ICD-10-PCS; 2019-05-21)
DX: I13.0 Hypertensive heart and chronic kidney disease with heart failure and stage 1 through stage 4 chronic kidney disease, or unspecified chronic kidney disease (principal); I50.23 Acute on chronic systolic (congestive) heart failure; I47.2 Ventricular tachycardia; I42.0 Dilated cardiomyopathy; I27.20 Pulmonary hypertension, unspecified; I08.1 Rheumatic disorders of both mitral and tricuspid valves; F41.0 Panic disorder [episodic paroxysmal anxiety]; N18.9 Chronic kidney disease, unspecified; F12.90 Cannabis use, unspecified, uncomplicated; I25.10 Atherosclerotic heart disease of native coronary artery without angina pectoris; E29.1 Testicular hypofunction; E03.9 Hypothyroidism, unspecified; Z88.1 Allergy status to other antibiotic agents; Z87.891 Personal history of nicotine dependence; Z79.82 Long term (current) use of aspirin; Z79.899 Other long term (current) drug therapy; Z98.52 Vasectomy status
CPT/HCPCS: 36415; 71045; 71046; 71275; 78452; 80048; 80053; 80061; 80305; 80320; 82803; 83735; 83880; 84100; 84132; 84145; 84439; 84443; 84484; 85014; 85025; 85610; 85730; 87081; 90732; 93005; 93017; 93306; 93460; 96374; 96375; 99152; 99153; 99285; A4620; A5120; A9500; C1769; C1894; G0378; J0280; J1644; J1650; J1940; J2001; J2250; J2405; J2785; J3010; J3475; J3490; J7030; Q9967; Z7610

== ENCOUNTER 2021-04-10 04:46 | Emergency (ER) | payer BC ==
[~2021-04-10] VITALS: Ht 193 cm; Wt 95.0 kg
[~2021-04-10 04:46] MED LIST changes: +ASPI-1071 PO; +CIPR10DR EACH EAR; +COR3.125T PO; +FURO40TA4 PO; -HYDR-3972 PO; +LEVO175T2 PO; +LOSA25TA41 PO; +SPIR25TA PO; +TEST200V10 IM
[2021-04-10 04:54] VITALS: BP 125/80
[2021-04-10] MEDS ORDERED: aspirin 81mg tab.chew PO ONE (05:25)
[2021-04-10] MEDS ORDERED: SACU1TAB4 (05:33)
[2021-04-10 05:36] LABS: BASOPHILS % (AUTO) 0.5 % (0-1); EOSINOPHILS # (AUTO) 0.1 X10'3 (0-0.9); EOSINOPHILS % (AUTO) 1.4 % (0-6); HEMATOCRIT 43.6 % (42.0-52.0); HEMOGLOBIN 14.6 g/dl (14.0-17.9); LYMPHOCYTES # (AUTO) 1.5 X10'3 (1.1-4.8); LYMPHOCYTES % (AUTO) 25.7 % (21-51); MEAN CORPUSCULAR HEMOGLOBIN 30.5 PG (27.0-31.0); MEAN CORPUSCULAR HGB CONC 33.5 g/dL (33.0-36.5); MEAN CORPUSCULAR VOLUME 90.9 FL (78-98); MEAN PLATELET VOLUME 7.5 FL (7.4-10.4); MONOCYTES # (AUTO) 0.5 X10'3 (0-0.9); MONOCYTES % (AUTO) 8.4 % (2-12); NEUTROPHILS # (AUTO) 3.6 X10'3 (1.8-7.7); PLATELET COUNT 268 X10'3 (140-440); RED CELL DISTRIBUTION WIDTH 13.7 % (11.5-14.5); WHITE BLOOD COUNT 5.7 X10'3 (4.5-11.0)
[2021-04-10 05:40] LABS: ALBUMIN 3.6 G/DL (3.4-5.0); ANION GAP 10 (8-16); BILIRUBIN,TOTAL 0.3 MG/DL (0.1-1.0); BLOOD UREA NITROGEN 12 MG/DL (7-18); BUN/CREATININE RATIO 11.8 (5.4-32.0); CALCIUM 8.7 MG/DL (8.5-10.1); CHLORIDE 103 MMOL/L (99-107); CREATININE 1.02 MG/DL (0.60-1.10); GLUCOSE 114 MG/DL (70-104); POTASSIUM 3.8 MMOL/L (3.5-5.1); SODIUM 138 MMOL/L (135-145); TOTAL CARBON DIOXIDE 25.3 MMOL/L (24-32); TOTAL PROTEIN 7.1 G/DL (6.4-8.2); eGFR 76 ML/MIN
[2021-04-10 05:41] LABS: ALANINE AMINOTRANSFERASE 22 U/L (12-78); ALKALINE PHOSPHATASE 68 IU/L (46-116); ASPARTATE AMINO TRANSFERASE 9 U/L (10-37)
== END 2021-04-10 06:33 | disposition home or self-care (01) ==
LOC: ER 04:47
DX: R07.89 Other chest pain (principal); R12 Heartburn; I50.9 Heart failure, unspecified; E03.9 Hypothyroidism, unspecified; F12.90 Cannabis use, unspecified, uncomplicated; Z98.890 Other specified postprocedural states; Z88.1 Allergy status to other antibiotic agents; Z79.82 Long term (current) use of aspirin; Z79.899 Other long term (current) drug therapy
CPT/HCPCS: 36415; 71045; 80053; 83880; 84484; 85025; 93005; 99285

== ENCOUNTER 2021-12-28 19:58 | Emergency (ER) | payer BC ==
[~2021-12-28] VITALS: Ht 193 cm; Wt 103.7 kg
[~2021-12-28 19:58] MED LIST changes: -CIPR10DR EACH EAR; -LOSA25TA41 PO; +SACU1TAB4; -TEST200V10 IM; +TEST200V33 IM
[2021-12-28 20:44] LABS: BASOPHILS % (AUTO) 0.4 % (0-1); EOSINOPHILS # (AUTO) 0.1 X10'3 (0-0.9); HEMATOCRIT 47.3 % (42.0-52.0); HEMOGLOBIN 16.2 g/dl (14.0-17.9); LYMPHOCYTES # (AUTO) 1.1 X10'3 (1.1-4.8); LYMPHOCYTES % (AUTO) 17.4 % (21-51); MEAN CORPUSCULAR HEMOGLOBIN 30.6 PG (27.0-31.0); MEAN CORPUSCULAR HGB CONC 34.3 g/dL (33.0-36.5); MEAN CORPUSCULAR VOLUME 89.3 FL (78-98); MEAN PLATELET VOLUME 7.8 FL (7.4-10.4); MONOCYTES # (AUTO) 0.4 X10'3 (0-0.9); MONOCYTES % (AUTO) 6.8 % (2-12); NEUTROPHILS # (AUTO) 4.9 X10'3 (1.8-7.7); NEUTROPHILS % (AUTO) 74.4 % (42-75); PLATELET COUNT 306 X10'3 (140-440); RED CELL DISTRIBUTION WIDTH 13.6 % (11.5-14.5); WHITE BLOOD COUNT 6.5 X10'3 (4.5-11.0)
[2021-12-28] MEDS ORDERED: normal saline 1000ml 1,000 ML IV ONE (21:00)
[2021-12-28] MEDS ORDERED: diltiazem 5mg/ml 5ml inj. IV ONE (21:00)
[2021-12-28 21:06] LABS: ALANINE AMINOTRANSFERASE 27 U/L (12-78); ALBUMIN 3.8 G/DL (3.4-5.0); ALKALINE PHOSPHATASE 85 IU/L (46-116); ANION GAP 8 (8-16); BILIRUBIN,TOTAL 0.3 MG/DL (0.1-1.0); BLOOD UREA NITROGEN 16 MG/DL (7-18); CALCIUM 8.5 MG/DL (8.5-10.1); CHLORIDE 104 MMOL/L (99-107); CREATININE 1.33 MG/DL (0.60-1.10); POTASSIUM 3.9 MMOL/L (3.5-5.1); SODIUM 142 MMOL/L (135-145); TOTAL CARBON DIOXIDE 29.8 MMOL/L (24-32); TOTAL PROTEIN 7.6 G/DL (6.4-8.2); eGFR 55 ML/MIN
[2021-12-28] MEDS ORDERED: diltiazem-NS 100mg/100ml 100 ML IV SCH (21:15)
[2021-12-28 21:36] LABS: ASPARTATE AMINO TRANSFERASE 21 U/L (10-37); GLUCOSE 88 MG/DL (70-104)
[2021-12-28] MEDS ORDERED: amiodarone 150mg/dext, iso-os 100 ML IV ONE (21:45)
[2021-12-28] MEDS ORDERED: enoxaparin 100mg/ml syringe SUBCUT ONE (21:45)
--- NOTE | 2021-12-28 21:52 | NUR ---
RN SPOKE WITH NABIL GARCIA. PLAN OF CARE TO CONTINUE CARDIZEM DRIP AT 5MLS/HR AND RUN AMIODORONE LODING DOSE SIMULTANEOUSLY. SAID TO TURN OFF CARDIZEM IF HR DROPS BELOW 80 BPM.
[2021-12-28] MEDS ORDERED: METO50TA17 PO (21:55)
[2021-12-28] MEDS ORDERED: APIX5TAB3 PO (21:55)
[2021-12-28 22:31] VITALS: BP 136/95
== END 2021-12-28 22:50 | disposition home or self-care (01) ==
LOC: ER 19:58
DX: I48.91 Unspecified atrial fibrillation (principal); F41.9 Anxiety disorder, unspecified; R00.0 Tachycardia, unspecified; I50.9 Heart failure, unspecified; E03.9 Hypothyroidism, unspecified; F12.90 Cannabis use, unspecified, uncomplicated; Z98.890 Other specified postprocedural states; Z88.1 Allergy status to other antibiotic agents; Z79.82 Long term (current) use of aspirin; Z79.899 Other long term (current) drug therapy
CPT/HCPCS: 36415; 71045; 80053; 83880; 84484; 85025; 93005; 96365; 96372; 96375; 96376; 99285; J0282; J1650; J3490

== ENCOUNTER 2022-11-14 10:44 | Inpatient (IN) | payer BC ==
[~2022-11-14] VITALS: Ht 195.6 cm; Wt 103.2 kg
[~2022-11-14 10:44] MED LIST changes: +APIX5TAB3 PO; +METO50TA17 PO
[2022-11-14] MEDS ORDERED: potassium Cl 40MEQ/1/2NS 520ml 520 ML IV PRN (15:55)
[2022-11-14] MEDS ORDERED: magnesium Cl slow-release 64mg tablet PO PRN (15:55)
[2022-11-14] MEDS ORDERED: ondansetron/PF 4mg/2ml inj IV PRN (15:55)
[2022-11-14] MEDS ORDERED: magnesium 4gm in 100ml NS 100 ML IV PRN (15:55)
[2022-11-14] MEDS ORDERED: potassium Cl 20 mEq SR tablet PO PRN ×2 (15:55)
[2022-11-14] MEDS ORDERED: PERFLUTREN PROTEIN-A MICROSPHR (Optison) 0.22 MG/ML 3ML VIAL IV ONE (15:55)
[2022-11-14 16:29] VITALS: BP 138/92
[2022-11-14] MEDS ORDERED: furosemide 20 MG/2 ML vial IV ONE (17:50)
[2022-11-14 18:26] LABS: ALBUMIN 3.7 G/DL (3.4-5.0); ANION GAP 7 (8-16); BLOOD UREA NITROGEN 14 MG/DL (7-18); BUN/CREATININE RATIO 14.4 (5.4-32.0); CALCIUM 9.1 MG/DL (8.5-10.1); CHLORIDE 104 MMOL/L (99-107); CREATININE 0.97 MG/DL (0.60-1.10); GLUCOSE 114 MG/DL (70-104); POTASSIUM 4.8 MMOL/L (3.5-5.1); SODIUM 139 MMOL/L (135-145); TOTAL CARBON DIOXIDE 28.4 MMOL/L (24-32); eGFR 79 ML/MIN
[2022-11-14 19:21] VITALS: BP 140/103
[2022-11-14] MEDS ORDERED: metoprolol tartrate 50mg tablet PO SCH ×2 (20:00)
[2022-11-14] MEDS: apixaban 5mg tablet PO SCH (20:00)
[2022-11-14] MEDS: K and/or MAG REPLACEMENT MC SCH (20:00)
[2022-11-14] MEDS: carVEDilol 12.5mg tablet PO SCH (21:01)
[2022-11-14] MEDS: aspirin 81mg, enteric-coated 1 TAB TABLET.DR PO SCH (21:01)
[2022-11-14] MEDS: sacubitril/valsartan 24mg-26mg tablet PO SCH (21:01)
[2022-11-14] MEDS: furosemide 40mg/4ml inj IV SCH (21:01)
[2022-11-14] MEDS ORDERED: SACU1TAB7 PO (21:11)
[2022-11-14] MEDS ORDERED: ASPI-1071 PO (21:11)
[2022-11-14] MEDS ORDERED: FURO40TA4 PO (21:11)
[2022-11-14] MEDS ORDERED: CARV-50 PO (21:11)
[2022-11-14] MEDS ORDERED: SPIR25TA5 PO (21:11)
[2022-11-14] MEDS ORDERED: CARV12.545 PO (21:11)
[2022-11-14] MEDS ORDERED: aspirin 81mg, enteric-coated 1 TAB TABLET.DR PO PRN (21:15)
[2022-11-14 22:00] VITALS: BP 119/81
--- NOTE | 2022-11-15 | NUR ---
Pt. is awake alert oriented appears to be in good spirits. Able to talk about events leading to admission. Pt. is on Room air has an IV/SL able to use urinal at bedside. Pt. able to take a walk around the unit. Visited with spouse, instructed to use call light before leaving the floor. Potassium level is WNL Lasix given tolerated well voids large amts of urine.
[2022-11-15 02:00] VITALS: BP 120/78
[2022-11-15] MEDS ORDERED: carVEDilol 3.125mg tablet PO SCH (07:00)
[2022-11-15] MEDS ORDERED: levoTHYROXINE 175mcg tablet PO SCH ×2 (07:00→08:00)
[2022-11-15 07:18] VITALS: BP 88/53
[2022-11-15 07:23] LABS: BASOPHILS % (AUTO) 0.4 % (0-1); EOSINOPHILS # (AUTO) 0.1 X10'3 (0-0.9); HEMATOCRIT 49.3 % (42.0-52.0); HEMOGLOBIN 16.4 g/dl (14.0-17.9); LYMPHOCYTES # (AUTO) 1.3 X10'3 (1.1-4.8); LYMPHOCYTES % (AUTO) 21.6 % (21-51); MEAN CORPUSCULAR HEMOGLOBIN 30.6 PG (27.0-31.0); MEAN CORPUSCULAR HGB CONC 33.2 g/dL (33.0-36.5); MEAN CORPUSCULAR VOLUME 92.1 FL (78-98); MEAN PLATELET VOLUME 7.8 FL (7.4-10.4); MONOCYTES # (AUTO) 0.6 X10'3 (0-0.9); MONOCYTES % (AUTO) 9.6 % (2-12); NEUTROPHILS # (AUTO) 4.1 X10'3 (1.8-7.7); NEUTROPHILS % (AUTO) 66.4 % (42-75); PLATELET COUNT 265 X10'3 (140-440); RED BLOOD COUNT 5.36 X10'6 (4.70-6.10); RED CELL DISTRIBUTION WIDTH 14.7 % (11.5-14.5); WHITE BLOOD COUNT 6.1 X10'3 (4.5-11.0)
[2022-11-15 07:32] LABS: ALBUMIN 3.5 G/DL (3.4-5.0); ANION GAP 3 (8-16); BLOOD UREA NITROGEN 15 MG/DL (7-18); BUN/CREATININE RATIO 13.5 (5.4-32.0); CALCIUM 9.1 MG/DL (8.5-10.1); CHLORIDE 103 MMOL/L (99-107); CREATININE 1.11 MG/DL (0.60-1.10); GLUCOSE 108 MG/DL (70-104); MAGNESIUM 2.2 MG/DL (1.5-2.4); POTASSIUM 3.9 MMOL/L (3.5-5.1); SODIUM 138 MMOL/L (135-145); TOTAL CARBON DIOXIDE 32.3 MMOL/L (24-32); eGFR 68 ML/MIN
[2022-11-15] MEDS ORDERED: carVEDilol 12.5mg tablet PO SCH (08:00)
[2022-11-15] MEDS: K and/or MAG REPLACEMENT MC SCH (08:00)
[2022-11-15] MEDS ORDERED: spironolactone 25 MG tablet PO SCH ×3 (08:00→10:00)
[2022-11-15] MEDS: apixaban 5mg tablet PO SCH (08:00)
[2022-11-15] MEDS: aspirin 81mg, enteric-coated 1 TAB TABLET.DR PO SCH (08:27)
[2022-11-15] MEDS: furosemide 40mg/4ml inj IV SCH (08:27)
[2022-11-15] MEDS: carVEDilol 12.5mg tablet PO SCH (08:28)
[2022-11-15] MEDS: sacubitril/valsartan 24mg-26mg tablet PO SCH (08:28)
[2022-11-15] MEDS ORDERED: aspirin 81mg tab.chew PO SCH (08:30)
[2022-11-15 08:36] VITALS: BP 113/82
[2022-11-15 10:28] VITALS: BP 94/58
--- NOTE | 2022-11-15 11:55 | NUR ---
Pt seen at bedside, states he's still hungry following meals. Pt agrees to double protein with meals, dietary notified. Pt requests to not have additional items such as yogurt, cottage cheese, or smoothies. Pt provided with RD contact information and encouraged to reach out if needed. Will continue to follow. Addendum: 11/15/22 at [address] Amended: Links added.
[2022-11-15] MEDS ORDERED: CARV6.253 PO (12:17)
[2022-11-15] MEDS ORDERED: ASPI-1264 PO (12:17)
[2022-11-15] MEDS ORDERED: FLEC50TA28 PO (12:17)
[2022-11-15] MEDS ORDERED: SACU1TAB7 PO (12:17)
[2022-11-15] MEDS ORDERED: SPIR25TA5 PO (12:17)
[2022-11-15 14:30] VITALS: BP 112/76
--- NOTE | 2022-11-15 14:44 | NUR ---
pt discharged in stable condition to home with friend. iv removed tip intact no complications. belongings sent with pt. pt educated on importance of medication compliance and discharge follow up.
== END 2022-11-15 14:05 | disposition home or self-care (01) | DRG 292 ==
LOC: CARD DIAG 10:44 → EDSTATUS 11:00 → PCU 3S 15:53
PROVIDERS: ADMIT Internal Medicine Cardiovascular Disease; ATTEND Internal Medicine Cardiovascular Disease
DX: I50.43 Acute on chronic combined systolic (congestive) and diastolic (congestive) heart failure (principal); I42.0 Dilated cardiomyopathy; I42.8 Other cardiomyopathies; I48.0 Paroxysmal atrial fibrillation; Z88.1 Allergy status to other antibiotic agents; Z79.899 Other long term (current) drug therapy; Z79.82 Long term (current) use of aspirin
CPT/HCPCS: 36415; 71046; 80048; 83735; 83880; 85025; 87081; 93306; A6260; G0378; J1940; J2405